=== PATIENT | male | born 1950 | race Caucasian/White ===

== ENCOUNTER 2021-06-16 10:59 | Emergency (ER) | payer OTHER ==
[2021-06-16 11:47] VITALS: BMI 27.3
[2021-06-16 14:55] VITALS: BP 150/84; PULSE 72; TEMP 98.3
== END 2021-06-16 14:56 | disposition home or self-care (01) ==
LOC: JER 10:59
DX: S09.90XA Unspecified injury of head, initial encounter (principal); W06.XXXA Fall from bed, initial encounter
CPT/HCPCS: 70450-TC; 71046-TC-FY; 72125-TC; 73030-TC-LT-FY; 99285-25